=== PATIENT | male | born 1960 | race Hispanic/Latino ===

== ENCOUNTER → 2024-02-13 | Emergency (ER) | payer BC ==
[~2024-02-13] MED LIST: ACETAMINOPHEN 500 MG TAB ONE; KETOROLAC 30 MG/ML INJ ONE; dexAMETHasone 4 MG TAB ONE
--- NOTE | 2024-02-13 11:22 | EDPHYS ---
Physician Documentation [facility] Name: Ammon Washington Age: 63 yrs Sex: Male : 1960 Arrival Date: 02/13/2024 Time: 10:30 Bed 11 Private MD: ED Physician Deangelo Hackett HPI: 02/12 10:48 This 63 yrs old Male presents to ER via Ambulatory with complaints of Flu ec2 Symptoms. 10:48 Patient arrives today for evaluation of URI signs and symptoms along with worsening ec2 sore throat. Patient reports that he has been having several days of symptoms. Patient reports having cough and cold symptoms along with body aches, subjective fevers and chills, no vomiting or diarrhea. Reports his most distressing symptom is a sore throat. Patient reports pain with swallowing. No difficulty breathing.. Historical: - Allergies: 10:46 Reglan; ph - PMHx: 10:46 Diabetes mellitus; Hypertensive disorder; Hypothyroidism; Arthritis; ph - Immunization history:: Adult Immunizations unknown. - Social history:: Smoking status: Reported history of juuling and/or vaping. ROS: 10:48 Constitutional: as per hpi ec2 Exam: 10:48 Constitutional: GEN: NAD Head: atraumatic Eyes: EOMI Ears: External ears are normal. ec2 Mouth: Posterior pharyngeal erythema without exudate appreciated. CV: regular rate LUNGS: no respiratory distress ABD: non-distended, soft, nontender, no guarding, not rigid SKIN: no evidence of rashes MSK: no evidence of trauma NEURO: moves all extremities equally Vital Signs: 10:43 BP 157 / 101; Pulse 87; Resp 18; Temp 99; Pulse Ox 96% on R/A; ph 11:30 BP 140 / 89; Pulse 81; Resp 18; Temp 99; Pulse Ox 97% on R/A; ph MDM: 10:48 Data reviewed: vital signs. ED course: Patient arrives today for evaluation of URI ec2 symptoms. Examination remarkable for posterior pharyngeal erythema without exudate. Will obtain strep swab, treat the patient symptoms reassess. Evaluating for strep pharyngitis, additionally considering viral infection.. 10:51 Patient medically screened. ec2 11:22 ED course: Strep swab negative. Presentation consistent with viral infection. Will ec2 discharge home. Turn precautions given.. 02/12 10:48 Order name: Strep ec2 02/12 11:22 Order name: Throat Culture EDMS Administered Medications: 10:56 Drug: Ketorolac IM 30 mg IM once Route: IM; Site: right deltoid; ph 11:31 Follow up: Response: No adverse reaction ph 10:57 Drug: Dexamethasone PO 10 mg PO once Route: PO; ph 11:31 Follow up: Response: No adverse reaction ph 10:57 Drug: Acetaminophen PO 1000 mg PO once Route: PO; ph 11:31 Follow up: Response: No adverse reaction ph Disposition Summary: 02/13/24 11:22 Discharge Ordered Notes: Location: Home ec2 Condition: Stable ec2 Diagnosis - Viral infection, unspecified ec2 Followup: ec2 - With: Private Physician - When: - Reason: Re-evaluation by your physician Discharge Instructions: - Discharge Summary Sheet ec2 - Viral Illness, Adult ec2 Forms: - Work release form ec2 - Medication Reconciliation Form ec2 - Thank You Letter ec2 - Antibiotic Education ec2 - Prescription Opioid Use ec2 - Patient Portal Instructions ec2 - Leadership Thank You Letter ec2 Signatures: Dispatcher [employer] Lauren Chandler RN RN Deangelo Hackett MD MD ec2
--- NOTE | 2024-02-13 11:22 | ER ---
Nurse's Notes [facility] Name: Ammon Washington Age: 63 yrs Sex: Male : 1960 Arrival Date: 02/13/2024 Time: 10:30 Bed 11 Private MD: Diagnosis: Viral infection, unspecified Presentation: 02/12 10:43 Chief complaint: Patient states: Fever, chills, sore throat, headache, body aches, ph started yesterday. Coronavirus screen: Vaccine status: Patient reports receiving the 2nd dose of the covid vaccine. Ebola Screen: No symptoms or risks identified at this time. Initial Sepsis Screen: Does the patient meet any 2 criteria? No. Patient's initial sepsis screen is negative. Does the patient have a suspected source of infection? No. Patient's initial sepsis screen is negative. Risk Assessment: Do you want to hurt yourself or someone else? Patient reports no desire to harm self or others. Onset of symptoms was February 13, 2024. 10:43 Method Of Arrival: Ambulatory ph 10:43 Acuity: YEN 4 ph Triage Assessment: 10:57 General: Appears in no apparent distress. well groomed, Behavior is calm, cooperative, ph appropriate for age, Reports chills for fever for. Pain: Complains of pain in throat and body aches. EENT: Throat is reddened. Historical: - Allergies: 10:46 Reglan; ph - PMHx: 10:46 Diabetes mellitus; Hypertensive disorder; Hypothyroidism; Arthritis; ph - Immunization history:: Adult Immunizations unknown. - Social history:: Smoking status: Reported history of juuling and/or vaping. Screenin:57 Abuse screen: Denies threats or abuse. Denies injuries from another. Nutritional ph screening: No deficits noted. Tuberculosis screening: No symptoms or risk factors identified. 11:31 [facility] ED Fall Risk Assessment (Adult) History of falling in the last 3 months, ph including since admission No falls in past 3 months (0 pts) Confusion or Disorientation No (0 pts) Intoxicated or Sedated No (0 pts) Impaired Gait No (0 pts) Mobility Assist Device Used No (0 pt) Altered Elimination No (0 pt) Score/Fall Risk Level 0 - 2 = Low Risk Oriented to surroundings, Maintained a safe environment, Hourly rounding (assess needs \T\ fall precautionary measures) done. Assessment: 11:15 General: SEE TRIAGE ASSESSMENT. ph Vital Signs: 10:43 BP 157 / 101; Pulse 87; Resp 18; Temp 99; Pulse Ox 96% on R/A; ph 11:30 BP 140 / 89; Pulse 81; Resp 18; Temp 99; Pulse Ox 97% on R/A; ph ED Course: 10:33 Patient arrived in ED. rg4 10:46 [facility] sb4 10:46 Deangelo Hackett MD is Attending Physician. sb4 10:46 Triage completed. ph 10:48 Lauren Duncan RN is Primary Nurse. ph 10:48 Arm band placed on Patient placed in an exam room. ph 10:54 Strep Sent. bc6 10:57 Patient has correct armband on for positive identification. Bed in low position. Call ph light in reach. 11:30 No provider procedures requiring assistance completed. Patient did not have IV access ph during this emergency room visit. Administered Medications: 10:56 Drug: Ketorolac IM 30 mg IM once Route: IM; Site: right deltoid; ph 11:31 Follow up: Response: No adverse reaction ph 10:57 Drug: Dexamethasone PO 10 mg PO once Route: PO; ph 11:31 Follow up: Response: No adverse reaction ph 10:57 Drug: Acetaminophen PO 1000 mg PO once Route: PO; ph 11:31 Follow up: Response: No adverse reaction ph Medication: 10:57 VIS not applicable for this client. ph Outcome: 11:22 Discharge ordered by . ec2 11:30 Discharged to home ambulatory, ph 11:30 Condition: good 11:30 Discharge instructions given to patient, Instructed on discharge instructions, follow up and referral plans. Demonstrated understanding of instructions, follow-up care, 11:32 Patient left the ED. ph Signatures: Lauren Duncan RN RN ph Jenn Cutler rg4 Arielle Arzola PA-C PA-C sb4 Fior Patricia bc6 Deangelo Hackett MD MD ec2
[2024-02-13 12:04] VITALS: BP 140/89; TEMP 99; O2SAT 97
== END ==
LOC: ER 10:30
DX: B34.9 Viral infection, unspecified (principal); E11.9 Type 2 diabetes mellitus without complications; I10 Essential (primary) hypertension; Z88.8 Allergy status to other drugs, medicaments and biological substances
CPT/HCPCS: 87070; 87081; J8540; 96372; 99284